=== PATIENT | male | born 1980 | race Caucasian/White ===

== ENCOUNTER 2020-08-08 09:18 | Outpatient (REF) | payer OTHER, SELFPAY ==
[2020-08-08 09:43] LABS: COVID-19 Test Negative (Negative); IDNOW Serial# 55D5AD1C
== END 2020-08-08 09:19 | disposition home or self-care (01) ==
LOC: HO.EMPCOV 09:18
PROVIDERS: PCP Nurse Practitioner Family; Visit Provider Internal Medicine
DX: Z20.828 Contact with and (suspected) exposure to other viral communicable diseases (principal)
CPT/HCPCS: 87635; C9803

== ENCOUNTER 2020-08-15 09:52 | Outpatient (REF) | payer OTHER, SELFPAY ==
[2020-08-15 10:11] LABS: COVID-19 Test Negative (Negative)
== END 2020-08-15 09:53 | disposition home or self-care (01) ==
LOC: HO.EMPCOV 09:52
PROVIDERS: Visit Provider Internal Medicine
DX: Z20.828 Contact with and (suspected) exposure to other viral communicable diseases (principal)
CPT/HCPCS: 87635; C9803

== ENCOUNTER 2020-09-18 10:21 | Outpatient (REF) | payer OTHER, SELFPAY ==
[2020-09-18 10:41] LABS: COVID-19 Test Negative (Negative)
== END 2020-09-18 10:22 | disposition home or self-care (01) ==
LOC: HO.EMPCOV 10:21
PROVIDERS: Visit Provider Internal Medicine
DX: Z20.822 Contact with and (suspected) exposure to COVID-19 (principal)
CPT/HCPCS: 36415; 87635; C9803